=== PATIENT | male | born 1955 | race Caucasian/White ===

== ENCOUNTER 2021-06-29 12:52 | Inpatient (IN) | payer MEDICARE, OTHER ==
[~2021-06-29] VITALS: Ht 175.3 cm; Wt 77.1 kg
[~2021-06-29 12:52] MED LIST: ASPIRIN EC81 MG PO; BUMETANIDE1 MG PO; FUROSEMIDE20 MG PO; LEVAQUIN750 MG PO; LORTAB 5-325 M1 EACH PO; NITROGLYCERIN0.4 MG SL; PANTOPRAZOLE SO40 MG PO; SUCRALFATE1 GM/10 ML PO; ZESTRIL40 MG PO
[2021-06-29 15:35] LABS: HEMOGLOBIN 8.5 gm/dl (14.0-17.5); RED BLOOD COUNT 3.33 M/UL (4.20-5.50); WHITE BLOOD COUNT 6.2 K/UL (4.5-11.0)
[2021-06-30 03:50] LABS: HEMOGLOBIN 8.2 gm/dl (14.0-17.5); RED BLOOD COUNT 3.1 M/UL (4.20-5.50); WHITE BLOOD COUNT 6.4 K/UL (4.5-11.0)
[2021-06-30] MEDS ORDERED: NITROSTAT0.4 MG SL (13:07)
[2021-06-30] MEDS ORDERED: PROTONIX40 MG PO (13:08)
[2021-06-30] MEDS ORDERED: HYDROCODON-ACE1 EAC2 PO (13:09)
[2021-06-30] MEDS ORDERED: BREO ELLIPTA 21 EACH INH (13:10)
[2021-06-30] MEDS ORDERED: TRAZODONE HCL100 MG PO (13:10)
[2021-06-30] MEDS ORDERED: IPRAT-ALBUT 0.5-3 ML NEB (13:10)
[2021-06-30] MEDS ORDERED: TORSEMIDE20 MG PO (13:11)
[2021-06-30] MEDS ORDERED: VITAMIN B-12500 MCG PO (13:11)
--- NOTE | 2021-06-30 16:35 | NUR ---
REPORT CALLED TO MIESHA FRAZIER ON MED SURG 4, PT GOING TO [facility] [id number]
[2021-06-30] MEDS ORDERED: PROAIR DIGIHAL90 MCG INH (23:28)
[2021-07-01 06:46] LABS: HEMOGLOBIN 8.8 gm/dl (14.0-17.5)
[2021-07-01 06:51] LABS: RED BLOOD COUNT 3.45 M/UL (4.20-5.50); WHITE BLOOD COUNT 8.3 K/UL (4.5-11.0)
--- NOTE | 2021-07-02 07:36 | NUR ---
PATIENT AT 0358. [facility] NOTIFIED. FAMILY AT BEDSIDE. NURSE OFFERED CONDOLENCES AND OFFERED FOOD AND DRINK. FAMILY TO WAIT AT BEDSIDE UNTIL HOME ARRIVES.
--- NOTE | 2021-07-02 08:44 | NUR ---
[facility] AT [facility].
== END 2021-07-02 03:58 | disposition expired | DRG 432 ==
LOC: ER1 12:52 → CDU 17:56 → MED SURG 4 17:56 → PROG CARE 06-30 09:56 → MED SURG 4 06-30 17:23
PROVIDERS: Family Medicine; ADMIT Internal Medicine
DX: K70.31 Alcoholic cirrhosis of liver with ascites (principal); K72.00 Acute and subacute hepatic failure without coma; G92.8 Other toxic encephalopathy; J69.0 Pneumonitis due to inhalation of food and vomit; Z20.822 Contact with and (suspected) exposure to COVID-19; J96.21 Acute and chronic respiratory failure with hypoxia; D61.818 Other pancytopenia; N17.9 Acute kidney failure, unspecified; F11.20 Opioid dependence, uncomplicated; C85.10 Unspecified B-cell lymphoma, unspecified site; I50.9 Heart failure, unspecified; D64.9 Anemia, unspecified; D69.6 Thrombocytopenia, unspecified; E11.649 Type 2 diabetes mellitus with hypoglycemia without coma; R00.1 Bradycardia, unspecified; N18.9 Chronic kidney disease, unspecified; E11.22 Type 2 diabetes mellitus with diabetic chronic kidney disease; R62.7 Adult failure to thrive; R13.10 Dysphagia, unspecified; I25.10 Atherosclerotic heart disease of native coronary artery without angina pectoris; R16.1 Splenomegaly, not elsewhere classified; Z92.21 Personal history of antineoplastic chemotherapy; Z87.891 Personal history of nicotine dependence; Z68.25 Body mass index [BMI] 25.0-25.9, adult; Z90.89 Acquired absence of other organs; Z79.899 Other long term (current) drug therapy; Z74.01 Bed confinement status
CPT/HCPCS: 36415; 36600; 51702; 70450; 71045; 76700; 80053; 80307; 81001; 82140; 82550; 82553; 82803; 83735; 83874; 84484; 85025; 85027; 85610; 87040; 87086; 92610; 93005; 94760; 99285; J1335; J3430; U0002